=== PATIENT | male | born 1985 | race African-American/Black ===

== ENCOUNTER 2022-10-14 14:06 | Outpatient (REF) | payer MEDICAID, SELFPAY ==
[2022-10-14 16:13] LABS: Urine Cytology See Pathology rpt
== END 2022-10-14 14:07 | disposition home or self-care (01) ==
LOC: HO.LNP 14:06
PROVIDERS: PCP Internal Medicine; Visit Provider Nurse Practitioner Family
DX: R35.0 Frequency of micturition (principal); R31.29 Other microscopic hematuria; R39.9 Unspecified symptoms and signs involving the genitourinary system; F17.200 Nicotine dependence, unspecified, uncomplicated
CPT/HCPCS: 51798; 81003; 88112; 99212

== ENCOUNTER 2022-10-14 14:06 | Outpatient (AMB) | payer MEDICAID, SELFPAY ==
--- NOTE | 2022-10-14 14:12 | A.OFFVIS_ITS ---
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 Burciaga. He presents to the office today as a new patient for lower urinary tract symptoms. Discussion with the patient today reports previously following up with [facility] however they have since closed. He reports noting for many years approximately four to be having ongoing lower urinary tract symptoms. He reports previously trying many urological medications for urinary urgency, urinary frequency, and nocturia however have not found them helpful. He does report to be compliant with 4 mg of tolterodine daily. However he does not feel lower urinary tract symptoms have improved. In office urinalysis today reviewed with the patient today. Discussed at length potential causes for microscopic hematuria. Discussed at length further microscopic hematuria workup to include CT urogram, cytology, and in office cystoscopy. Discussed risks and benefits of surveillance monitoring verses further microscopic hematuria workup. Patient discusses previously trialing tamsulosin 0.4 mg daily and did not find this helpful for his lower urinary tract symptoms either. He otherwise denies incontinence, nocturia, hematuria, dysuria, foul smelling urine, changes to urinary stream, flank pain, fever, and or chills. When asked he does report episodes of nocturia however reports it is not the need to urinate that wakes him up. PVR 0ml's. When asked he does endorse to smoking recreational marijuana and cigarette smoking for approximately 15 years. He denies any known chemical exposure. He otherwise denies any other issues or concerns at this time. Review of Systems Const All systems reviewed & are unremarkable except as noted in HPI and below Eyes Reports no additional complaints ENT Reports no additional complaints Card Reports no additional complaints Resp Reports no additional complaints GI Reports no additional complaints Reports as per HPI Musc Reports no additional complaints Neuro Reports no additional complaints Psych Reports no additional complaints Endo Reports no additional complaints Tim/Lymph Reports no additional complaints Aller/Immun Reports no additional complaints Physical Exam Const General: cooperative, healthy appearing, comfortable, no acute distress, well developed, alert and awake Nutritional Appearance: average body habitus Orientation/consciousness: patient oriented x3 Limitations: no limitations HEENT Head: Yes normal to inspection, Yes normocephalic and Yes atraumatic Ears: hearing grossly normal bilaterally Eyes General: appearance normal, both eyes and all related structures Neck Neck: Yes normal visual inspection and Yes trachea midline Chest Chest palpation & inspection: normal inspection of the chest Resp Effort & Inspection: normal respiratory effort and able to speak in complete sentences Cardio Rate: regular rate GI Inspection: Yes normal to inspection General: Yes no CVA tenderness Back/Spine/Pelvis Back: no CVA tenderness Skin General skin exam: no rashes or lesions noted Neuro General: patient oriented x3 Extrem General: Yes normal to inspection Psych Appearance: grossly normal and well kempt Mental Status: mental status grossly normal Speech and movement: Normal speech and movement present and Clear speech present Affect: normal affect Attitude: cooperative Thought process: Normal thought process present Thought content: Normal thought content present Insight: Good insight present (Psych) Judgement: Good judgement present (Psych) Office Procedures Post Void Residual Post Residual Void Post Void Residual (PVR): [id number] Void Residual by ultrasound Results AMB Urinalysis, Automated UA Leukoctes 0 Jeremy/uL Last Edit by [employer]afa on 10/14/22 14:36 UA Nitrite Negative Last Edit by [employer] Moon on 10/14/22 14:36 UA Urobilinogen 0.2 mg/dL Last Edit by Metail [employer]rish[employer] on 10/14/22 14:36 UA Protein 0 mg/dL Last Edit by iubenda on 10/14/22 14:36 UA pH 6.0 Last Edit by iubenda on 10/14/22 14:36 UA Blood 10 Bam/uL Last Edit by Metail Faust[employer]Krishidhan [employer] on 10/14/22 14:36 UA Specific [place] 1.025 Last Edit by iubenda on 10/14/22 14:36 UA Ketone Negative Last Edit by iubenda on 10/14/22 14:36 UA Bilirubin 0 mg/dL Last Edit by Metail Moon on 10/14/22 14:36 UA Glucose 0 mg/dL Last Edit by María Mustafa on 10/14/22 14:36 Results Reviewed Results Reviewed: Laboratory Last Values Urine pH (Auto) 6.0 10/14/22 14:18 Specific [place] (Auto) 1.025 10/14/22 14:18 Urine Protein (Auto) 0 mg/dL 10/14/22 14:18 Glucose (UA)(Auto) 0 mg/dL 10/14/22 14:18 Urine Ketones (Auto) Negative 10/14/22 14:18 Urine Blood (Auto) 10 Bam/uL 10/14/22 14:18 Urine Nitrite (Auto) Negative 10/14/22 14:18 Urine Bilirubin (Auto) 0 mg/dL 10/14/22 14:18 Urine Urobilinogen (Auto) 0.2 mg/dL 10/14/22 14:18 Leukocyte Esterase (Auto) 0 Jeremy/uL 10/14/22 14:18 Assessment & Plan Assessment & Plan (1) Microhematuria: Code(s): R31.29 - Other microscopic hematuria (2) Lower urinary tract symptoms: Code(s): R39.9 - Unspecified symptoms and signs involving the genitourinary system (3) Nicotine dependence: Code(s): F17.200 - Nicotine dependence, unspecified, uncomplicated Plan In office urinalysis results reviewed with the patient today; as noted above; will send for urine cytology. Discussed at length bladder triggers/irritants Will obtain CT urogram for further assessment evaluation. Discussed at length potential causes for microscopic hematuria as well as further interventions and assessments. BUN and creatinine ordered for imaging Stop Tolderadine Start Cialis 5mg daily as discussed and prescribed. Discussed at length importance of limiting/quitting recreational marijuana use and nicotine dependence. Follow-up in office cystoscopy; or sooner with any issues, concerns, or questions. Orders: Orders Urine Cytology Today Z13.9 - Encounter for screening, unspecified Blood Urea Nitrogen Today R31.29 - Other microscopic hematuria Creatinine Today R31.29 - Other microscopic hematuria, R39.9 - Unspecified symptoms and signs involving the genitourinary system CT urogram Today R31.29 - Other microscopic hematuria, R39.9 - Unspecified symptoms and signs involving the genitourinary system AMB Urinalysis Automated Today Z13.9 - Encounter for screening, unspecified AMB Post Void Residual by ultrasound Today Z13.9 - Encounter for screening, unspecified Medications: New tadalafil (Cialis) [id number] [facility] [place] [id number] Member [id number] 5 mg PO DAILY 90 days 90 tabs 0RF Patient Instructions: The patient had an opportunity to ask questions regarding the treatment plan. All questions were answered. Physical exam, labs, and imaging were discussed and reviewed in detail. As well as risks, benefits, and discussion of treatment choices. No major barriers to understanding were identified. The patient expressed understanding and agreement with the above treatment plan. The patient was made aware they should contact our office by phone for worsening of their current condition, the appearance of new symptoms, or with any questions or concerns. Compliance is encouraged with any medications and follow up testing that is ordered. It is a privilege to be allowed the opportunity to participate in? your urological care.? Again, if you have any questions or concerns If you have any questions or concerns please do not hesitate to contact me. The office is [phone]. This note is constructed using voice recognition software. While every effort has been made to ensure accuracy auto wheel alignment specialist errors may have been included. Yours sincerely, BUD Jameson Coding Level of Care Code New Pt Level 4 (17809) Diagnoses Microhematuria R31.29 Lower urinary tract symptoms R39.9 Nicotine dependence F17.200 CPT Codes Post Residual Void - PVR CPT Code: 71232-Snxo Void Residual by ultrasound ([id number])
== END 2022-10-14 15:15 | disposition home or self-care (01) ==
PROVIDERS: PCP Internal Medicine; Visit Provider Nurse Practitioner Family
DX: R31.29 Other microscopic hematuria (principal); R39.9 Unspecified symptoms and signs involving the genitourinary system; F17.200 Nicotine dependence, unspecified, uncomplicated; Z13.9 Encounter for screening, unspecified
CPT/HCPCS: 99204

== ENCOUNTER 2023-04-14 11:39 | Outpatient (REF) | payer MEDICAID, SELFPAY ==
[2023-04-14 15:55] LABS: CT PCR NOT DETECTED (Not Detect.); NG PCR NOT DETECTED (Not Detect.)
[2023-04-15 08:53] LABS: HIV AB/AG Nonreactive (Nonreactive); HIV Num 1 0.05 S/CO (0.00-0.99)
[2023-04-16 19:34] LABS: TS Negative Control Passed; TS Panel A 0; TS Panel B 1; TS Positive Control Passed; TSpotTB Negative (Negative)
== END 2023-04-14 11:40 | disposition home or self-care (01) ==
LOC: HO.10HDL 11:39
PROVIDERS: Visit Provider Internal Medicine
DX: Z00.00 Encounter for general adult medical examination without abnormal findings (principal); L84 Corns and callosities; Z11.3 Encounter for screening for infections with a predominantly sexual mode of transmission; Z13.31 Encounter for screening for depression
CPT/HCPCS: 0353U; 86481; 87389